=== PATIENT | female | born 1995 | race Caucasian/White ===

== ENCOUNTER 2017-05-29 16:22 | Emergency (ER) | payer BC ==
[2017-05-29 17:01] VITALS: BP 111/60
--- NOTE | 2017-05-29 17:25 | UC ---
Back Pain HPI - HPI Summary HPI Summary: 22 female presents to with complaints of right side flank pain that began around 12:30today. Patient states she was experiencing 4-5 episodes of vomiting early this morning around 2am that subsided around 6:30am. 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 She later began having sharp shooting, waxing and waning pain of right side /flank under rib cage that began around 12:30. States it radiates into RUQ. States she is unable to sit still in the same position due to pain worsening, sitting and taking deep breaths worsens pain. Describes it to be sharp and shooting at its worse, and dull when not exacerbated. Admits to urinary urgency and some incontinence but denies burning, frequency and hematuria. No medications. Has never had pain like this before. Denies fever/chills. No other complaints. No PMHx. Has not ate or drank anything today due to loss of appetite. - History of Current Complaint Chief Complaint: UCBackPain Stated Complaint: VOMITING,BACK PAIN Time Seen by Provider: 05/29/17 17:06 Hx Obtained From: Patient Hx Last Menstrual Period: last week Onset/Duration: Sudden Onset, Lasting Hours, Still Present Timing: Intermittent, Lasting Minutes Severity Initially: Mild Severity Currently: Moderate Pain Intensity: 6 Pain Scale Used: 0-10 Numeric Back Pain: Is Discrete @ - right flank/right rib cage radiating into abdomen Character: Sharp, Dull Aggravating Factor(s): Other - position, deep breaths Alleviating Factor(s): Position, Nothing Associated Signs And Symptoms: Positive: Negative, Abdominal Pain - radiates into RUQ, Flank Pain, Other - urinary urgency. Negative: Bruising, Weakness, Numbness, Bladder Incontinence, Bowel Incontinence - Allergies/Home Medications Allergies/Adverse Reactions: Allergies Allergy/AdvReac Type Severity Reaction Status Date / Time Azithromycin [From Zithromax] Allergy Severe Rash Verified 05/29/17 17:01 cats Allergy Intermediate Hives Uncoded 05/29/17 17:01 Home Medications: Home Medications Albuterol HFA INHALER* [Ventolin HFA Inhaler*] 2 puff INH Q4H PRN 05/29/17 [ History Confirmed 05/29/17] Escitalopram Oxalate [Lexapro 20 mg] 25 mg PO DAILY 05/29/17 [History Confirmed 05/29/17] O C 1 tab PO QPM 05/29/17 [History Confirmed 05/29/17] PMH/Surg Hx/FS Hx/Imm Hx - Additional Past Medical History Additional PMH: Denies DM and HTN - Surgical History Surgical History: Yes Surgery Procedure, Year, and Place: Tonsillectomy, 1999, [place] - Family History Known Family History: Positive: None - dad possible with anxiety, Other - Anxiety (dad, possibly) - Social History Alcohol Use: None Substance Use Type: None Smoking Status (MU): Never Smoked Tobacco Household Exposure Type: Cigarettes - Immunization History Most Recent Influenza Vaccination: Not the Season Most Recent Pneumonia Vaccination: never Vaccination Up to Date: Yes Review of Systems Constitutional: Negative ENT: Negative, Dental Pain Cardiovascular: Negative Gastrointestinal: Abdominal Pain, Vomiting, Nausea Genitourinary: Urgency Musculoskeletal: Arthralgia, Myalgia - right flank/back pain Neurological: Negative All Other Systems Reviewed And Are Negative: Yes Physical Exam Triage Information Reviewed: Yes Appearance: Well-Appearing, Well-Nourished, Pain Distress - moderate, pacing around room unable to get comfortable Vital Signs: Initial Vital Signs Temp 99.1 F 05/29/17 16:55 Pulse 83 05/29/17 16:55 Resp 20 05/29/17 16:55 BP 111/60 05/29/17 16:55 Pulse Ox 100 05/29/17 16:55 Vital Signs Reviewed: Yes Eyes: Positive: Conjunctiva Clear ENT: Positive: Pharynx normal Neck: Positive: Supple, Nontender Respiratory: Positive: Chest non-tender, Lungs clear, Normal breath sounds, No respiratory distress Cardiovascular: Positive: RRR, No Murmur, Pulses Normal Abdomen Description: Positive: No Organomegaly, Soft, CVA Tenderness (R), Other : - + murphys sign, pain on palpation of RUQ, right lower rib cage/side and flank pain. Negative: CVA Tenderness (L), Distended, Guarding, McBurney's Point Tenderness, Pulsatile Mass Bowel Sounds: Positive: Present, Hyperactive Musculoskeletal: Positive: Strength Intact Neurological: Positive: Alert Skin Exam: Normal Back Pain Course/Dx - Course Course Of Treatment: urinalysis and urine obtained. some trace leuk and bilirubin noted in urine. no sign of significant infection. normal vitals. due to vague HPI and PE findings unable to rule out cholecystitis and pyleonephritis. encouraged lab work, u/s imaging at ER to rule these out due to pain and vomiting. symptoms possibly due to food poisoining or gastroenteritis that caused a costochondritis or muscle strain however due to PE findings and HPI unable to rule out other etiology. held off on pain management until seen at [facility] ER. Mother and patient agree and understand. Will go to [facility] ER for further evaluation and work up. Report given. - Differential Dx/Diagnosis Differential Diagnosis/HQI/PQRI: Other - costochondritis, muscle strain, muscle spasm, right flank pain, pyelonephritis, cholecystitis, gastroenteritis, RUQ pain Provider Diagnoses: Right flank pain pain, RUQ pain Discharge - Discharge Plan Condition: Stable Disposition: OTHER Discharge Disposition Comment: recommended to go to [facility] ER for further evaluation and work up Patient Education Materials: Flank Pain (ED) Referrals: Lashae Rivera PA [Primary Care Provider] - Additional Instructions: Please go to [facility] ER for further work up and evaluation I am incapable of preforming at .
== END 2017-05-29 17:44 ==
LOC: UCCORT 16:22
DX: M54.5 Low back pain (principal); R10.11 Right upper quadrant pain; R39.15 Urgency of urination; R32 Unspecified urinary incontinence; Z32.02 Encounter for pregnancy test, result negative; Z88.1 Allergy status to other antibiotic agents; Z77.22 Contact with and (suspected) exposure to environmental tobacco smoke (acute) (chronic)
CPT/HCPCS: 81003; 84702; 87086; 99212; G0463

== ENCOUNTER 2017-07-09 16:24 | Emergency (ER) | payer BC ==
--- NOTE | 2017-07-09 17:00 | UC ---
FLU HPI - HPI Summary HPI Summary: 22 year old female presents with complains of fever, chills, and body aches. - History of Current Complaint Stated Complaint: FLU LIKE Time Seen by Provider: 07/09/17 16:59 Hx Obtained From: Patient Hx Last Menstrual Period: last week Onset/Duration: Sudden Onset Severity Currently: Moderate Severity Initially: Moderate Pain Scale Used: 0-10 Numeric - 5 Associated Signs & Symptoms: Positive: Fever, Myalgia, Sore Throat, Headache - Allergy/Home Medications Allergies/Adverse Reactions: Allergies Allergy/AdvReac Type Severity Reaction Status Date / Time Azithromycin [From Zithromax] Allergy Severe Rash Verified 07/09/17 17:08 cats Allergy Intermediate Hives Uncoded 07/09/17 17:08 PMH/Surg Hx/FS Hx/Imm Hx Previously Healthy: Yes - Surgical History Surgical History: Yes Surgery Procedure, Year, and Place: Tonsillectomy, 1999, [place] - Family History Known Family History: Positive: None - dad possible with anxiety, Other - Anxiety (dad, possibly) - Social History Alcohol Use: None Substance Use Type: None Smoking Status (MU): Never Smoked Tobacco Household Exposure Type: Cigarettes - Immunization History Most Recent Influenza Vaccination: Not the 2014/2015 Season Most Recent Pneumonia Vaccination: never Vaccination Up to Date: Yes Review of Systems Constitutional: Negative Skin: Negative Eyes: Negative ENT: Sore Throat, Nasal Discharge, Sinus Congestion, Sinus Pain/Tenderness Respiratory: Cough Cardiovascular: Negative Gastrointestinal: Negative Genitourinary: Negative Motor: Negative Neurovascular: Negative Musculoskeletal: Negative Neurological: Negative Psychological: Negative All Other Systems Reviewed And Are Negative: Yes Physical Exam Triage Information Reviewed: Yes Vital Signs Reviewed: Yes Eye Exam: Normal ENT: Positive: Pharyngeal erythema, Nasal drainage, Tonsillar swelling, Sinus tenderness Dental Exam: Normal Neck exam: Normal Neck: Positive: 1 Respiratory: Positive: Respiratory distress, Rhonchi, Wheezing Cardiovascular Exam: Normal Abdominal Exam: Normal Musculoskeletal Exam: Normal Neurological Exam: Normal Psychological Exam: Normal Skin Exam: Normal Flu Course/Dx - Differential Dx/Diagnosis Provider Diagnoses: influenza Discharge - Discharge Plan Condition: Stable Disposition: HOME Prescriptions: Guaifenesin-Codeine [Cheratussin AC] 1 teasp PO Q8H PRN #120 ml MDD 15 ML PRN Reason: Cough LoraTADine TAB(NF) [Claritin 10 MG TAB(NF)] 10 mg PO DAILY #30 tab Oseltamivir CAP* [Tamiflu CAP*] 75 mg PO BID #10 cap Patient Education Materials: Influenza (ED) Forms: *Work Release Referrals: Lashae Rivera PA [Primary Care Provider] -
[2017-07-09 17:08] VITALS: BP 98/59
== END 2017-07-09 17:43 | disposition home or self-care (01) ==
LOC: UCCORT 16:24
DX: J11.1 Influenza due to unidentified influenza virus with other respiratory manifestations (principal); Z77.22 Contact with and (suspected) exposure to environmental tobacco smoke (acute) (chronic)
CPT/HCPCS: 87502; 99211; G0463

== ENCOUNTER 2018-06-03 12:01 | Emergency (ER) | payer BC ==
[2018-06-03 12:17] VITALS: BP 117/71
--- NOTE | 2018-06-03 13:06 | UC ---
Back Pain HPI - HPI Summary HPI Summary: 23 y/o female presents to the urgent care c/o RT lower back pain and urinary frequency w/ 1 episode of incontinence today. Pain started on her bladder and radiated to RT lower back and then she had the incontinence episode. Pt reports she has had this problem for the past 6-8months for which her PCP recently did a bladder US which was normal. She has an appt w/ a Urologist in [place] in 2 weeks. She is concerned since this is the first time she had an episode of incontinence. Pain is 3/10 and then relief w/ urination. Pt stated normal BM. Pt denies fever, flank pain, saddle anesthesia, fecal incontinence, SOB, PASTRANA, rash, vaginal discharge, Hx of STD. or hematuria or B/L lower extremities numbness or tingling. - History of Current Complaint Chief Complaint: UCGU Stated Complaint: RIGHT LOW BACK PAIN, URINARY COMPLAINT Time Seen by Provider: 06/03/18 12:38 Hx Obtained From: Patient Hx Last Menstrual Period: 05/14/18 ?: No Onset/Duration: Gradual Onset, Lasting Weeks - 6-8months w/ multiple episodes of frequency on urination and bladder pain. She has seen her PCP multiple times w/ same symptoms., Still Present, Worse Since - Ptdevelopes 1 episode of incontinence Timing: Intermittent, Lasting Seconds Severity Initially: Mild Severity Currently: Mild Pain Intensity: 3 Pain Scale Used: 0-10 Numeric Back Pain: Is Discrete @ - badder pain radiating to the RT lower back, Radiates To - Rt lower back Character: Dull Aggravating Factor(s): Nothing Alleviating Factor(s): Other - urination Associated Signs And Symptoms: Positive: Negative, Bladder Incontinence. Negative: Swelling, Redness, Bruising, Fever, Weakness, Numbness, Tingling, Abdominal Pain, Flank Pain, Bowel Incontinence, Weight Loss, Pain with Weight Bearing - Risk Factors AAA Risk Factors: Negative TAD Risk Factors: Negative Cauda Equina Risk Factors: Negative Epidural Abscess Risk Factors: Negative - Allergies/Home Medications Allergies/Adverse Reactions: Allergies Allergy/AdvReac Type Severity Reaction Status Date / Time azithromycin Allergy Rash Verified 06/03/18 12:10 Home Medications: Home Medications Bcp 1 tab DAILY 06/03/18 [History Confirmed 06/03/18] Budesonide/Formote 160/4.5(NF) [Symbicort 160/4.5 (NF)] 2 puff BID 06/03/18 [ History Confirmed 06/03/18] PMH/Surg Hx/FS Hx/Imm Hx Previously Healthy: Yes Respiratory History: Asthma - Surgical History Surgical History: Yes Surgery Procedure, Year, and Place: Tonsillectomy, 1999, [place] - Family History Known Family History: Positive: None - dad possible with anxiety, Other - Anxiety (dad, possibly) - Social History Occupation: Student Lives: With Family Alcohol Use: Rare Substance Use Type: None Smoking Status (MU): Never Smoked Tobacco Household Exposure Type: Cigarettes - Immunization History Most Recent Influenza Vaccination: Not the Season Most Recent Pneumonia Vaccination: never Vaccination Up to Date: Yes Review of Systems All Other Systems Reviewed And Are Negative: Yes Constitutional: Positive: Negative Skin: Positive: Negative Eyes: Positive: Negative ENT: Positive: Negative Respiratory: Positive: Negative Cardiovascular: Positive: Negative Gastrointestinal: Positive: Negative Genitourinary: Positive: Dysuria, Frequency, Urgency Motor: Positive: Negative Neurovascular: Positive: Negative Musculoskeletal: Positive: Other: - RT lower back pain relief w/ urination Neurological: Positive: Negative Psychological: Positive: Negative Is Patient Immunocompromised?: No Physical Exam - Summary Physical Exam Summary: VITAL SIGNS: Reviewed. GENERAL: Patient is a well developed and nourished female who is sitting comfortable in the examining table. Patient is not in any acute respiratory distress. HEAD AND FACE: No signs of trauma. No ecchymosis, hematomas or skull depressions. No sinus tenderness. EYES: PERRLA, EOMI x 2, No injected conjunctiva, clear watery eyes, no nystagmus. No photophobia. EARS: Hearing grossly intact. Ear canals and tympanic membranes are within normal limits. MOUTH: pharynx with no erythema, no exudates,no palatal petechiae. no B/L tonsillar enlargement Uvula in midline. NECK: Supple, trachea is midline, no lymphadenopathy, no JVD, no carotid bruit, no c-spine tenderness, neck with full ROM. CHEST: Symmetric, no tenderness at palpation LUNGS: Clear to auscultation bilaterally. No wheezing or crackles. CVS: Regular rate and rhythm, S1 and S2 present, no murmurs or gallops appreciated. ABDOMEN: Soft, non-tender. No signs of distention. No rebound no guarding, and no masses palpated. Bowel sounds are normal. BACK:no scoliosis or lesions, non tender to palpation, No B/L CVA tenderness EXTREMITIES: FROM in all major joints, no edema, no cyanosis or clubbing. NEURO: Alert and oriented x 3. No acute neurological deficits. Speech is normal and follows commands. SKIN: Dry and warm Triage Information Reviewed: Yes Vital Signs: Initial Vital Signs Temp 97.9 F 06/03/18 12:11 Pulse 91 06/03/18 12:11 Resp 15 06/03/18 12:11 BP 117/71 06/03/18 12:11 Pulse Ox 100 06/03/18 12:11 Back Pain Course/Dx - Course Course Of Treatment: 23 y/o female presents to the urgent care c/o RT lower back pain and urinary frequency w/ 1 episode of incontinence today. Pain started on her bladder and radiated to RT lower back and then she had the incontinence episode. Pt reports she has had this problem for the past 6- 8months for which her PCP recently did a bladder US which was normal. She has an appt w/ a Urologist in [place] in 2 weeks. She is concerned since this is the first time she had an episode of incontinence. Pain is 3/10 and then relief w/ urination. Pt stated normal BM. Pt denies fever, flank pain, saddle anesthesia, fecal incontinence, SOB, PASTRANA, rash, vaginal discharge, Hx of STD. or hematuria or B/L lower extremities numbness or tingling. Hx obtaine. PE: WNL. UA and test ordered. UA results:Negative, test: negative. Pt 's symptosm discussed w/ DR Pritchard and he recommended a lower back X-ray to r/o any abnormality. If negative to f/u w/ Urologist. Lumbosacral X-ray ordered: Impression: No fractue or abdnomality observed as per radiologist. Pt Rx Pyridium 100mg PO TID x 2 days. Strongly advised to f/u w/ Urologist DR Cazares of r Urologist for further management. Also advised kegels exercises. D/C instructions explained. Pt understood and agreed w/ plan of care. Left the clinic ambulating. - Differential Dx/Diagnosis Differential Diagnosis/HQI/PQRI: Compressive Cord Syndrome, Herniated Disc, Renal Colic, Other - UTI, pyelonephritis, cystitis, Provider Diagnosis: Dysuria - Physician Notifications Discussed Care With: Jacob Pritchard - Dr Pritchard agreed w/ Pt's plan of care. Discharge - Sign-Out/Discharge Documenting (check all that apply): Patient Departure All imaging exams completed and their final reports reviewed: Yes - Discharge Plan Condition: Stable Disposition: HOME Prescriptions: Phenazopyridine TAB* [Pyridium 100 mg TAB*] 100 mg PO TID #6 tab Patient Education Materials: Dysuria (ED) Referrals: Kathryn FARRIS,Scarlett Betancourt [Primary Care Provider] - 3 Days Matthew Fierro MD [Medical Doctor] - 3 Days Additional Instructions: 1- Please take Pyridium 100 mg PO TID x 2 days to alleviate urinary symptoms. Increase increase fluid intake. drink cranberry juice. 2-Urine sent for culture if any abnormality, you will be notified for further treatment. 3-If symptoms do not improve please return to the urgent care or f/u with her PCP. 4- Lower back X-ray was negative - Billing Disposition and Condition Condition: STABLE Disposition: Home
== END 2018-06-03 14:12 | disposition home or self-care (01) ==
LOC: UCCORT 12:01
DX: R30.0 Dysuria (principal); Z88.1 Allergy status to other antibiotic agents
CPT/HCPCS: 72110; 81003; 84702; 99212; G0463

== ENCOUNTER 2018-06-05 11:39 | Emergency (ER) | payer BC ==
[2018-06-05 13:21] LABS: ABS Basophils 0 10^3/ul (0-0.2); ABS Eosinophils 0.2 10^3/ul (0-0.6); ABS Monocytes 0.5 10^3/ul (0-0.8); ABS Neutrophils 5.1 10^3/ul (1.5-7.7); ABS Nucleated RBC 0 10^3/ul; Eosinophil % 1.9 %; Hematocrit 41 % (35-47); Lymphocyte % 34.1 %; Mean Corpuscular HGB Conc 34 g/dl (31-36); Mean Corpuscular Hemoglobin 32 pg (27-31); Mean Corpuscular Volume 93 fL (80-97); Mean Platelet Volume 8.3 fL (7.4-10.4); Nucleated Red Blood Cells % 0.1; Platelet Count 269 10^3/ul (150-450); Red Blood Count 4.43 10^6/ul (4.00-5.40); Red Cell Distribution Width 12 % (10.5-15); White Blood Count 8.9 10^3/ul (3.5-10.8)
[2018-06-05 13:40] LABS: EGFR Non-African American 82.2 (>60)
[2018-06-05 14:05] LABS: Urine Appearance Clear; Urine Blood Negative (Negative); Urine Color Yellow; Urine Ketones Negative (Negative); Urine Protein Negative (Negative); Urine Specific Gravity 1.008 (1.010-1.030); Urine Urobilinogen Negative (Negative)
--- NOTE | 2018-06-05 14:12 | ED ---
GI/ HPI - HPI Summary HPI Summary: 23-year-old female presents with frequency for the past year. She states she is not able to control her bladder. She had normal bladder ultrasound 2 weeks ago. She developed severe suprapubic. States nauseous due to the pain. She denies any vomiting. No diarrhea or constipation. She denies any abnormal vaginal discharge. She is on control. She was seen in urgent care 2 days ago and had a negative urine. She hasn't tried anything for her symptoms. She has follow-up with urology in 2 weeks. she denies any fever. she denies any back pain or loss of bowel. - History of Current Complaint Chief Complaint: EDUrogenitalProblems Time Seen by Provider: 06/05/18 12:38 Stated Complaint: SEVERE LOWER ABD PAIN Hx Last Menstrual Period: 05/14/18 Pain Intensity: 7 - Allergy/Home Medications Allergies/Adverse Reactions: Allergies Allergy/AdvReac Type Severity Reaction Status Date / Time azithromycin Allergy Rash Verified 06/03/18 12:10 Home Medications: Home Medications Budesonide/Formote 80/4.5(NF) [Symbicort 80/4.5 (NF)] 2 puff INH BID 06/05/18 [ History Confirmed 06/05/18] Ethinyl Estradiol/Drospirenone [Drospirenone/Ethinyl Estr] 1 tab PO DAILY [History Confirmed 06/05/18] LevoCETirizine TAB (NF) [Xyzal TAB (NF)] 5 mg PO DAILY 06/05/18 [History Confirmed 06/05/18] PMH/Surg Hx/FS Hx/Imm Hx Endocrine/Hematology History: Denies: Hx Diabetes, Hx Thyroid Disease Cardiovascular History: Denies: Hx Hypertension Respiratory History: Reports: Hx Asthma - exercise induced. Denies: Hx Chronic Obstructive Pulmonary Disease (COPD) GI History: Denies: Hx Ulcer Psychiatric History: Reports: Hx Anxiety, Hx Depression Denies: Hx Eating Disorder, Hx of Violent Episodes Against Others - Surgical History Surgery Procedure, Year, and Place: Tonsillectomy, 1999, [place] Infectious Disease History: No Infectious Disease History: Denies: Hx Clostridium Difficile, Hx Hepatitis, Hx Human Immunodeficiency Virus (HIV), Hx of Known/Suspected MRSA, Hx Shingles, Hx Tuberculosis, Hx Known/ Suspected VRE, Hx Known/Suspected VRSA, History Other Infectious Disease, Traveled Outside the [place] in Last 30 Days - Family History Known Family History: Positive: None - dad possible with anxiety, Other - Anxiety (dad, possibly) - Social History Alcohol Use: Rare Substance Use Type: Reports: None Smoking Status (MU): Never Smoked Tobacco Review of Systems Negative: Fever Negative: Chest Pain Negative: Shortness Of Breath Positive: Abdominal Pain, Nausea. Negative: Vomiting, Diarrhea Positive: frequency. Negative: flank pain All Other Systems Reviewed And Are Negative: Yes Physical Exam Triage Information Reviewed: Yes Vital Signs On Initial Exam: Initial Vitals Temp Pulse Resp BP Pulse Ox 98.9 F 77 18 120/74 98 06/05/18 11:42 06/05/18 11:42 06/05/18 11:42 06/05/18 11:42 06/05/18 11:42 Vital Signs Reviewed: Yes Appearance: Positive: Well-Appearing Skin: Positive: Warm, Dry Head/Face: Positive: Normal Head/Face Inspection Eyes: Positive: Normal, Conjunctiva Clear ENT: Positive: Pharynx normal Respiratory/Lung Sounds: Positive: Clear to Auscultation, Breath Sounds Present Cardiovascular: Positive: Normal, RRR Abdomen Description: Positive: Soft, Other: - mild suprapubic tenderness Bowel Sounds: Positive: Present Musculoskeletal: Positive: Normal Neurological: Positive: Normal Psychiatric: Positive: Normal Diagnostics - Vital Signs Vital Signs Temp Pulse Resp BP Pulse Ox 06/05/18 11:42 98.9 F 77 18 120/74 98 - Laboratory Lab Results: Lab Results 06/05/18 06/05/18 06/05/18 Range/Units 13:14 13:14 13:44 WBC 8.9 (3.5-10.8) 10^3/ul RBC 4.43 (4.00-5.40) 10^6/ul Hgb 14.0 (12.0-16.0) g/dl Hct 41 (35-47) % MCV 93 (80-97) fL MCH 32 H (27-31) pg MCHC 34 (31-36) g/dl RDW 12 (10.5-15) % Plt Count 269 (150-450) 10^3/ul MPV 8.3 (7.4-10.4) fL Neut % (Auto) 57.5 % Lymph % (Auto) 34.1 % [place] % (Auto) 6.1 % Eos % (Auto) 1.9 % Baso % (Auto) 0.4 % Absolute Neuts (auto) 5.1 (1.5-7.7) 10^3/ul Absolute Lymphs (auto) 3.0 (1.0-4.8) 10^3/ul Absolute Monos (auto) 0.5 (0-0.8) 10^3/ul Absolute Eos (auto) 0.2 (0-0.6) 10^3/ul Absolute Basos (auto) 0 (0-0.2) 10^3/ul Absolute Nucleated RBC 0 10^3/ul Nucleated RBC % 0.1 Sodium 136 (135-145) mmol/L Potassium 3.7 (3.5-5.0) mmol/L Chloride 105 (101-111) mmol/L Carbon Dioxide 25 (22-32) mmol/L Anion Gap 6 (2-11) mmol/L BUN 8 (6-24) mg/dL Creatinine 0.87 (0.51-0.95) mg/dL Est GFR ( Amer) 99.5 (>60) Est GFR (Non-Af Amer) 82.2 (>60) BUN/Creatinine Ratio 9.2 (8-20) Glucose 99 (70-100) mg/dL Calcium 9.2 (8.6-10.3) mg/dL Total Bilirubin 0.50 (0.2-1.0) mg/dL AST 20 (13-39) U/L ALT 14 (7-52) U/L Alkaline Phosphatase 39 (34-104) U/L C-Reactive Protein 4.31 (<8.01) mg/L Total Protein 6.5 (6.4-8.9) g/dL Albumin 4.1 (3.2-5.2) g/dL Globulin 2.4 (2-4) g/dL Albumin/Globulin Ratio 1.7 (1-3) Lipase 13 (11.0-82.0) U/L Beta HCG, Quant < 0.60 mIU/mL Urine Color Yellow Urine Appearance Clear Urine pH 6.0 (5-9) Ur Specific [place] 1.008 L (1.010-1.030) Urine Protein Negative (Negative) Urine Ketones Negative (Negative) Urine Blood Negative (Negative) Urine Nitrate Negative (Negative) Urine Bilirubin Negative (Negative) Urine Urobilinogen Negative (Negative) Ur Leukocyte Esterase Negative (Negative) Urine Glucose Negative (Negative) Result Diagrams: 06/05/18 13:14 06/05/18 13:14 Lab Statement: Any lab studies that have been ordered have been reviewed, and results considered in the medical decision making process. - Ultrasound No standard instances Ultrasound Interpretation Completed By: Radiologist Summary of Ultrasound Findings: normal. GIGU Course/Dx - Course Course Of Treatment: 23-year-old female presents with frequency for the past year. She states she is not able to control her bladder. She had normal bladder ultrasound 2 weeks ago. She developed severe suprapubic. States nauseous due to the pain. She denies any vomiting. No diarrhea or constipation. She denies any abnormal vaginal discharge. She is on control. She was seen in urgent care 2 days ago and had a negative urine. She hasn't tried anything for her symptoms. She has follow-up with urology in 2 weeks. she denies any fever. she denies any back pain or loss of bowel. on exam tenderness suprapubic. labs wbc normal. crp normal. urine normal. transvaginal u/s normal. explained due to not have a reason for symptoms. told to keep follow up with urology. patient declined pelvic exam. patient understand and agrees with plan. - Diagnoses Differential Diagnoses - Female: Pyelonephritis, STD, Urinary Tract Infection Provider Diagnoses: Abdominal pain, Urgency of urination Discharge - Sign-Out/Discharge Documenting (check all that apply): Patient Departure - Discharge Plan Condition: Good Disposition: HOME Referrals: Scarlett Lima [Primary Care Provider] - Matthew Fierro MD [Medical Doctor] - Additional Instructions: Follow up with urology Take Tylenol or ibuprofen every 6 hours for pain Return to ED if develop any new or worsening symptoms - Billing Disposition and Condition Condition: GOOD Disposition: Home
[2018-06-05 15:08] VITALS: BP 113/67
== END 2018-06-05 15:00 | disposition home or self-care (01) ==
LOC: ED 11:39
DX: R10.30 Lower abdominal pain, unspecified (principal); R39.15 Urgency of urination; Z88.1 Allergy status to other antibiotic agents
CPT/HCPCS: 36415; 76830; 80053; 81003; 83690; 84702; 85025; 86140; 99282

== ENCOUNTER 2024-02-26 17:27 | Inpatient (IN) ==
[2024-02-26] MEDS: Lactated Ringers 1000 ml BAG 1,000 ML IV ONE (18:04)
[2024-02-26 18:42] LABS: ABS Eosinophils 0.2 10^3/uL (0.0-0.5); ABS Lymphocytes 2.6 10^3/uL (1.0-4.8); ABS Monocytes 1.4 10^3/uL (0.0-0.9); Eosinophil % 1.3 %; Hematocrit 39.9 % (35-45); Hemoglobin 13.7 g/dL (11.5-14.3); Lymphocyte % 16.1 %; Mean Corpuscular Hemoglobin 32.4 pg (27-33); Mean Corpuscular Hgb Conc 34.4 g/dL (31-36); Mean Corpuscular Volume 94.2 fL (80-97); Mean Platelet Volume 9.4 fL (7.5-11.2); Platelet Count 258 10^3/uL (150-450); Red Blood Count 4.23 10^6/uL (3.63-4.92); Red Cell Distribution Width 12.8 % (12-17); White Blood Count 16.2 10^3/uL (3.8-11.8)
[2024-02-26 19:02] LABS: Urine Benzodiazepine Screen None Detected (None Detect); Urine Cannabinoids Screen Presumptive Positive (None Detect); Urine Opiates Screen None Detected (None Detect)
[2024-02-26] MEDS: Oxytocin in LR 20,000 MILLI.UNIT/1,000 ML BAG IV SCH (19:51)
[2024-02-26] MEDS: Lactated Ringers 1000 ml BAG 1,000 ML IV SCH (19:51)
[2024-02-27] MEDS ORDERED: Lidocaine 1.5% EPI 1:200,000 30 ML SDV ONE (00:50)
[2024-02-27] MEDS ORDERED: Albuterol HFA INHALER 8 gm MDI INH PRN (00:50)
[2024-02-27] MEDS ORDERED: OBEPIDURAL (200 ML) 200 ML EPIDURAL ONE (00:50)
[2024-02-27] MEDS: Lactated Ringers 1000 ml BAG 1,000 ML IV ONE (01:00)
[2024-02-27] MEDS: OBEPIDURAL (200 ML) 200 ML EPIDURAL SCH (01:36)
[2024-02-27] MEDS: Lactated Ringers 1000 ml BAG 1,000 ML IV SCH (01:37)
[2024-02-27] MEDS ORDERED: Phenylephrine 40 mcg/mL 10mL (400mcg) SYRINGE IV PUSH PRN ×2 (01:50)
[2024-02-27] MEDS ORDERED: Sodium Citrate/Citric Acid LIQ 15 ML UDC PO PRN (01:50)
[2024-02-27] MEDS: Mometasone 220 MCG MDI INH SCH (02:39)
[2024-02-27 03:10] LABS: Urine Appearance Clear; Urine Bilirubin Negative (Negative); Urine Blood Negative (Negative); Urine Color Colorless; Urine Glucose Negative (Negative); Urine Ketones Trace (Negative); Urine Nitrite Negative (Negative); Urine Protein Negative (Negative); Urine Specific Gravity 1.008 (1.002-1.030); Urine Urobilinogen Negative (Negative)
[2024-02-27] MEDS: Ondansetron 4 mg VIAL 2 MG/ML 2 ml VIAL IV PRN (09:03)
[2024-02-27] MEDS ORDERED: Lidocaine 2% PF 10 ML AMP (OR) ONE (13:40)
[2024-02-27] MEDS: Lidocaine 1% VIAL 10 MG/ML 30 ML VIAL INJ PRN (14:20)
[2024-02-27] MEDS ORDERED: Glycerin ADULT 2.4 gm SUPP PR PRN (15:24)
[2024-02-27] MEDS ORDERED: Oxytocin in LR 20,000 MILLI.UNIT/1,000 ML BAG IV SCH (15:25)
[2024-02-27] MEDS: Witch Hazel PAD JAR TOPICAL PRN (16:12)
[2024-02-27] MEDS: Dibucaine 1% OINT 28.35 GM TUBE PR PRN (16:12)
[2024-02-28 07:03] LABS: ABS Eosinophils 0.4 10^3/uL (0.0-0.5); ABS Lymphocytes 3.3 10^3/uL (1.0-4.8); ABS Monocytes 1.5 10^3/uL (0.0-0.9); ABS Neutrophils 15.4 10^3/uL (1.5-7.6); ABS Nucleated RBC 0.01 10^3/ul; Eosinophil % 2.2 %; Hematocrit 36.7 % (35-45); Hemoglobin 12.4 g/dL (11.5-14.3); Lymphocyte % 15.8 %; Mean Corpuscular Hemoglobin 32.3 pg (27-33); Mean Corpuscular Hgb Conc 33.8 g/dL (31-36); Mean Corpuscular Volume 95.4 fL (80-97); Platelet Count 208 10^3/uL (150-450); Red Blood Count 3.84 10^6/uL (3.63-4.92); Red Cell Distribution Width 12.8 % (12-17); White Blood Count 20.7 10^3/uL (3.8-11.8)
[2024-03-01 08:18] VITALS: BP 113/64
[2024-03-01] MEDS: Senna TAB 8.6 mg TAB PO ONE (08:31)
== END 2024-03-01 12:22 | disposition home or self-care (01) | DRG 560 ==
LOC: MCHOBOUT 17:27 → MCHOB 18:05
PROVIDERS: ADMIT Midwife